=== PATIENT | male | born 1940 | race Caucasian/White ===

== ENCOUNTER 2018-02-19 07:57 | Emergency (ER) | payer MEDICARE, MEDICAID ==
[~2018-02-19] VITALS: Ht 167.6 cm; Wt 68.2 kg
[2018-02-19] MEDS ORDERED: SIMV-261 PO (08:08)
[2018-02-19] MEDS ORDERED: METF-960 PO (08:08)
[2018-02-19 08:15] LABS: GLUCOSE,POINT OF CARE 143 MG/DL (70-110)
[2018-02-19] MEDS ORDERED: KETOROLAC TROMETHAMINE 60 MG/2 ML VIAL IM ONE (09:15)
[2018-02-19 09:51] VITALS: BP 137/75
== END 2018-02-19 10:04 | disposition home or self-care (01) ==
LOC: EMS 07:58
DX: S39.012A Strain of muscle, fascia and tendon of lower back, initial encounter (principal); R03.0 Elevated blood-pressure reading, without diagnosis of hypertension; E11.9 Type 2 diabetes mellitus without complications; E78.00 Pure hypercholesterolemia, unspecified; Z79.84 Long term (current) use of oral hypoglycemic drugs; X58.XXXA Exposure to other specified factors, initial encounter; Y93.89 Activity, other specified; Y92.89 Other specified places as the place of occurrence of the external cause; Y99.8 Other external cause status
CPT/HCPCS: 82962; 96372; 99283; J1885

== ENCOUNTER 2018-07-03 17:45 | Emergency (ER) | payer MEDICARE, MEDICAID ==
[~2018-07-03] VITALS: Ht 167.6 cm; Wt 150.0 kg
[~2018-07-03 17:45] MED LIST: METF-960 PO; SIMV-261 PO
[2018-07-03] MEDS ORDERED: LISI-660 PO (18:17)
[2018-07-03] MEDS ORDERED: KETOROLAC TROMETHAMINE 60 MG/2 ML VIAL IM ONE (21:45)
[2018-07-03] MEDS ORDERED: ACETAMINOPHEN/CODEINE 300-30 MG TABLET PO ONE (21:45)
[2018-07-03] MEDS ORDERED: PERTUSS(ACELL),DIPH,TET VAC/PF 0.5 ML VIAL IM ONE (22:30)
[2018-07-03] MEDS ORDERED: BACITRACIN 0.9 GM PACKET OINTMENT TP ONE (22:30)
[2018-07-03 22:37] VITALS: BP 131/67
== END 2018-07-03 23:31 | disposition home or self-care (01) ==
LOC: EMS 17:46
DX: S39.012A Strain of muscle, fascia and tendon of lower back, initial encounter (principal); S16.1XXA Strain of muscle, fascia and tendon at neck level, initial encounter; S40.012A Contusion of left shoulder, initial encounter; S50.812A Abrasion of left forearm, initial encounter; I10 Essential (primary) hypertension; E78.00 Pure hypercholesterolemia, unspecified; W18.39XA Other fall on same level, initial encounter; Y93.01 Activity, walking, marching and hiking; Y92.89 Other specified places as the place of occurrence of the external cause; Y99.8 Other external cause status
CPT/HCPCS: 71045; 72040; 72100; 73030; 73060; 90471; 90715; 96372; 99283; J1885; 29240

== ENCOUNTER 2018-11-15 14:38 | Emergency (ER) | payer MEDICARE, MEDICAID ==
[~2018-11-15] VITALS: Ht 167.6 cm; Wt 65.9 kg
[~2018-11-15 14:38] MED LIST changes: +LISI-660 PO; -METF-960 PO
[2018-11-15] MEDS ORDERED: METHOCARBAMOL 500 MG TABLET PO ONE (16:15)
[2018-11-15] MEDS ORDERED: KETOROLAC TROMETHAMINE 60 MG/2 ML VIAL IM ONE (16:15)
[2018-11-15 17:21] VITALS: BP 147/78
== END 2018-11-15 17:25 | disposition home or self-care (01) ==
LOC: EMS 14:43
DX: M54.32 Sciatica, left side (principal); M54.10 Radiculopathy, site unspecified; E78.00 Pure hypercholesterolemia, unspecified; I10 Essential (primary) hypertension; Z79.899 Other long term (current) drug therapy
CPT/HCPCS: 96372; 99283; J1885

== ENCOUNTER 2018-11-16 12:25 | Emergency (ER) | payer MEDICARE, MEDICAID ==
[~2018-11-16] VITALS: Ht 170.2 cm; Wt 72.7 kg
[2018-11-16] MEDS ORDERED: KETOROLAC TROMETHAMINE 60 MG/2 ML VIAL IM ONE (13:00)
[2018-11-16 14:33] VITALS: BP 123/89
== END 2018-11-16 14:36 | disposition home or self-care (01) ==
LOC: EMS 12:27
DX: M54.32 Sciatica, left side (principal); Z79.899 Other long term (current) drug therapy
CPT/HCPCS: 96372; 99283; J1885

== ENCOUNTER 2023-11-21 09:26 | Emergency (ER) | payer MEDICARE, MEDICAID ==
[~2023-11-21] VITALS: Ht 167.6 cm; Wt 72.7 kg
[~2023-11-21 09:26] MED LIST changes: -LISI-660 PO; +LISI-892 PO
[2023-11-21] MEDS ORDERED: ASPI-1590 PO (09:31)
[2023-11-21 09:32] VITALS: TEMP 98.6
[2023-11-21] MEDS ORDERED: IBUP-1492 PO (11:08)
[2023-11-21] MEDS ORDERED: CYCL-448 PO (11:08)
[2023-11-21 11:13] VITALS: BP 130/75; PULSE 78; RESP 18; O2SAT 97
== END 2023-11-21 11:19 | disposition home or self-care (01) ==
LOC: EMS 09:26
DX: M54.42 Lumbago with sciatica, left side (principal); G89.29 Other chronic pain; E78.00 Pure hypercholesterolemia, unspecified; I10 Essential (primary) hypertension; Z79.82 Long term (current) use of aspirin
CPT/HCPCS: 99283; Z7502

== ENCOUNTER 2023-12-01 11:38 | Emergency (ER) | payer MEDICARE, MEDICAID ==
[~2023-12-01] VITALS: Ht 167.6 cm; Wt 68.2 kg
[~2023-12-01 11:38] MED LIST changes: +ASPI-1590 PO; +CYCL-448 PO; +IBUP-1492 PO
[2023-12-01 11:57] VITALS: TEMP 98.3
[2023-12-01] MEDS ORDERED: TAMS0.4C94 PO (12:25)
[2023-12-01] MEDS: KETOROLAC TROMETHAMINE 60 MG/2 ML VIAL IM ONE (12:40)
[2023-12-01] MEDS: LIDOCAINE 5% TRANSDERMAL PATCH TD ONE (12:40)
[2023-12-01] MEDS: METHOCARBAMOL 500 MG TABLET PO ONE (12:40)
[2023-12-01] MEDS ORDERED: METH-659 PO (12:54)
[2023-12-01 13:15] VITALS: BP 134/74; PULSE 79; RESP 17; O2SAT 99
== END 2023-12-01 13:58 | disposition home or self-care (01) ==
LOC: EMS 11:40
DX: M54.42 Lumbago with sciatica, left side (principal); I10 Essential (primary) hypertension; E78.00 Pure hypercholesterolemia, unspecified; N40.0 Benign prostatic hyperplasia without lower urinary tract symptoms; Z79.899 Other long term (current) drug therapy
CPT/HCPCS: 99283; 96372; J1885

== ENCOUNTER 2024-08-27 14:16 | Emergency (ER) | payer MEDICARE, MEDICAID ==
[~2024-08-27] VITALS: Ht 167.6 cm; Wt 68.2 kg
[~2024-08-27 14:16] MED LIST changes: +METH-659 PO; +TAMS0.4C94 PO
[2024-08-27] MEDS ORDERED: LOSA-382 PO (14:21)
[2024-08-27] MEDS ORDERED: GABA-1181 PO (14:21)
[2024-08-27] MEDS: IBUPROFEN 600 MG TABLET PO ONE (18:02)
[2024-08-27 18:26] VITALS: BP 110/57; PULSE 78; RESP 18; TEMP 98.5; O2SAT 96
== END 2024-08-27 18:37 | disposition home or self-care (01) ==
LOC: EMS 14:16
DX: S50.02XA Contusion of left elbow, initial encounter (principal); S09.90XA Unspecified injury of head, initial encounter; E78.00 Pure hypercholesterolemia, unspecified; I10 Essential (primary) hypertension; Z79.899 Other long term (current) drug therapy; W01.0XXA Fall on same level from slipping, tripping and stumbling without subsequent striking against object, initial encounter; Y93.01 Activity, walking, marching and hiking; Y92.89 Other specified places as the place of occurrence of the external cause; Y99.8 Other external cause status
CPT/HCPCS: 70450; 72125; 99284